=== PATIENT | male | born 2000 ===

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

== ENCOUNTER 2018-02-14 22:00 | Emergency (ER) | payer BC ==
[~2018-02-14] VITALS: Ht 172.7 cm; Wt 61.6 kg
== END 2018-02-15 00:03 | disposition left against medical advice (07) ==
LOC: ER 22:00
DX: Z53.21 Procedure and treatment not carried out due to patient leaving prior to being seen by health care provider (principal)

== ENCOUNTER 2018-04-30 03:41 | Emergency (ER) | payer BC, OTHER ==
[~2018-04-30] VITALS: Ht 172.7 cm; Wt 45.4 kg
== END 2018-04-30 04:10 | disposition home or self-care (01) ==
LOC: ER 03:41
DX: H61.22 Impacted cerumen, left ear (principal); F17.210 Nicotine dependence, cigarettes, uncomplicated
CPT/HCPCS: 69210; 99282

== ENCOUNTER 2019-10-11 17:22 | Emergency (ER) | payer BC, OTHER ==
[~2019-10-11] VITALS: Ht 177.8 cm; Wt 65.8 kg
[2019-10-11] MEDS ORDERED: PRED20 PO (18:51)
== END 2019-10-11 18:57 | disposition home or self-care (01) ==
LOC: ER 17:22
DX: J45.901 Unspecified asthma with (acute) exacerbation (principal); F17.210 Nicotine dependence, cigarettes, uncomplicated
CPT/HCPCS: 71046; 94640; 99283-25

== ENCOUNTER → 2019-12-22 | Outpatient (CLI) | payer BC, OTHER ==
[~2019-12-22] MED LIST changes: +PRED20 PO
== END | disposition home or self-care (01) ==
LOC: LAB EV 16:10 → LAB SHORT 16:10
DX: L03.012 Cellulitis of left finger (principal)
CPT/HCPCS: 87070; 87075; 87077; 87147; 87186; 87205

== ENCOUNTER 2025-01-08 10:29 | Inpatient (IN) | payer OTHER ==
[~2025-01-08] VITALS: Ht 175.3 cm; Wt 61.1 kg
[2025-01-08] MEDS ORDERED: Ketorolac Tromethamine 15mg Vial IV ONE (11:30)
[2025-01-08 12:01] LABS: BASOPHILS ABSOLUTE AUTO 0.04 K/mm3 (0.00-0.23); BASOPHILS PERCENT AUTO 0 % (0-2); EOSINOPHILS ABSOLUTE AUTO 0.17 K/mm3 (0.00-0.68); EOSINOPHILS PERCENT AUTO 2 % (0-6); Hematocrit 38.1 % (37.0-53.0); Hemoglobin 13.1 g/dL (13.5-17.5); IMMATURE GRAN ABSOLUTE AUTO 0.03 K/mm3 (0.00-0.10); IMMATURE GRAN PERCENT AUTO 0 % (0-1); LYMPHOCYTES ABSOLUTE AUTO 1.44 K/mm3 (0.84-5.20); LYMPHOCYTES PERCENT AUTO 14 % (21-46); MONOCYTES PERCENT AUTO 12 % (4-13); Mean Corpuscular HGB 29.3 pg (26.0-34.0); Mean Corpuscular HGB Conc 34.4 g/dL (31.5-36.5); Mean Corpuscular Volume 85 fL (80-100); Mean Platelet Volume 8.5 fL (9.1-12.4); NEUTROPHILS ABSOLUTE AUTO 7.12 K/mm3 (1.96-9.15); NEUTROPHILS PERCENT AUTO 71 % (41-73); Platelet Count 372 K/mm3 (150-400); RDW Coefficient Variation 12.6 % (11.7-14.2); RDW Standard Deviation 39.1 fL (35.1-46.3); Red Blood Cell Count 4.47 M/mm3 (4.30-5.90)
[2025-01-08] MEDS ORDERED: Clindamycin 900mg in D5W 50ML 50 ML IV ONE (12:05)
[2025-01-08 12:20] LABS: Albumin, Blood 3.7 g/dL (3.4-5.0); Albumin/Globulin Ratio 0.9 (0.8-1.8); Bun/Creatinine Ratio 19.4 (12.0-20.0); Calcium, Blood 9.4 mg/dL (8.5-10.1); Creatinine, Blood 0.88 mg/dL (0.60-1.20); Potassium, Blood 4.2 mmol/L (3.5-5.5); Total Protein, Blood 7.7 g/dL (6.4-8.2)
[2025-01-08] MEDS ORDERED: Vancomycin HCL 1,500 MG in NS 250 ML IV ONE (12:45)
[2025-01-08] MEDS ORDERED: Naloxone HCl 1MG / ML 2ML SYR IV ONE (14:25)
[2025-01-08] MEDS ORDERED: Ondansetron 4 MG TAB PO PRN (15:10)
[2025-01-08 17:48] VITALS: BP 120/79
[2025-01-08] MEDS ORDERED: NS 250 ML IV PRN (19:30)
[2025-01-08 20:07] VITALS: BP 118/78
[2025-01-08] MEDS ORDERED: Lactobacil 2-S.Thermo-Bifido 1 1 Cap PO SCH (21:00)
[2025-01-08] MEDS ORDERED: Docusate Sodium 100 MG Cap PO SCH (21:00)
[2025-01-08] MEDS ORDERED: Acetaminophen 325 MG TABLET PO PRN (21:45)
[2025-01-08] MEDS ORDERED: Ibuprofen 600 MG Tab PO PRN (21:50)
[2025-01-08] MEDS ORDERED: NS 1,000 ML IV SCH (21:50)
[2025-01-08] MEDS ORDERED: Clindamycin 900mg in D5W 50ML 50 ML IV SCH (22:00)
[2025-01-08] MEDS ORDERED: Vancomycin HCL 1,000 MG in NS 250 ML IV SCH (22:00)
--- NOTE | 2025-01-09 04:03 | NUR ---
SHIFT SUMMARY PATIENT HAD NO ACUTE CHANGES. ALERT ORIENTED AND INDEPENDENT IN ROOM. DENIES CHEST PAIN, SOB, AND N/V. VSS/AFEBRILE. PIV INTACT. IV ABXS INFUSED. WATCHED TV FIRST HALF OF SHIFT. COOPERATIVE WITH CARE. CALL LIGHT IN REACH. BED IN LOWEST POSITION. WILL CONTINUE TO MONITOR UNTIL DAY SHIFT NURSE ASSUMES CARE.
[2025-01-09 04:45] VITALS: BP 116/74
[2025-01-09 05:04] LABS: BASOPHILS ABSOLUTE AUTO 0.03 K/mm3 (0.00-0.23); BASOPHILS PERCENT AUTO 1 % (0-2); EOSINOPHILS ABSOLUTE AUTO 0.27 K/mm3 (0.00-0.68); EOSINOPHILS PERCENT AUTO 4 % (0-6); Hematocrit 33.6 % (37.0-53.0); Hemoglobin 11.6 g/dL (13.5-17.5); IMMATURE GRAN ABSOLUTE AUTO 0.02 K/mm3 (0.00-0.10); IMMATURE GRAN PERCENT AUTO 0 % (0-1); LYMPHOCYTES ABSOLUTE AUTO 1.49 K/mm3 (0.84-5.20); LYMPHOCYTES PERCENT AUTO 23 % (21-46); MONOCYTES ABSOLUTE AUTO 0.89 K/mm3 (0.16-1.47); MONOCYTES PERCENT AUTO 14 % (4-13); Mean Corpuscular HGB 29.8 pg (26.0-34.0); Mean Corpuscular HGB Conc 34.5 g/dL (31.5-36.5); Mean Corpuscular Volume 86 fL (80-100); NEUTROPHILS ABSOLUTE AUTO 3.72 K/mm3 (1.96-9.15); NEUTROPHILS PERCENT AUTO 58 % (41-73); Platelet Count 279 K/mm3 (150-400); RDW Coefficient Variation 12.8 % (11.7-14.2); RDW Standard Deviation 40.4 fL (35.1-46.3); Red Blood Cell Count 3.89 M/mm3 (4.30-5.90); White Blood Cell Count 6.42 K/mm3 (4.00-11.30)
[2025-01-09 06:05] LABS: Albumin, Blood 2.8 g/dL (3.4-5.0); Albumin/Globulin Ratio 0.9 (0.8-1.8); Bilirubin, Total 0.6 mg/dL (0.1-1.0); Calcium, Blood 8.5 mg/dL (8.5-10.1); Creatinine, Blood 0.84 mg/dL (0.60-1.20); Globulin, Blood 3.2 g/dL (2.2-4.0); Potassium, Blood 3.8 mmol/L (3.5-5.5)
[2025-01-09 07:43] VITALS: BP 112/63
[2025-01-09] MEDS ORDERED: Enoxaparin 40 MG/0.4 ML SYR SC SCH (09:00)
[2025-01-09 15:08] VITALS: BP 123/77
--- NOTE | 2025-01-09 18:08 | NUR ---
ALERT AND ORIENTED, PLEASANT TO CARE, SHOWERED, LEFT KNEE OPEN TO AIR, LEFT KNEE LESS RED, VANCO STOPPED PER DR ORTA, ICE PACK TO KNEE, MEDICATED WITH IBUPHROFEN X2, PATIENT REPORTED ADEQUATE RELIEF, CALL LIGHT WITH IN REACH, WILL RELAY TO PM RN
[2025-01-09 19:26] VITALS: BP 113/78
--- NOTE | 2025-01-10 04:07 | NUR ---
SHIFT SUMMARY PATIENT HAD NO ACUTE CHANGES. ALERT ORIENTED AND INDEPENDENT IN ROOM. REPORTS HIS LEFT LEG IS FEELING BETTER. DENIES CHEST PAIN, SOB, AND N/V. PIV INTACT. IV ABX INFUSED. SLEPT EARLY IN SHIFT. COOPERATIVE WITH CARE. CALL LIGHT IN REACH. BED IN LOWEST POSITION. WILL CONTINUE TO MONITOR UNTIL DAY SHIFT NURSE ASSUMES CARE.
[2025-01-10 05:28] VITALS: BP 112/78
[2025-01-10 07:14] VITALS: BP 114/75
[2025-01-10] MEDS ORDERED: Acetaminophen650 M1 PO (11:50)
[2025-01-10] MEDS ORDERED: IBUP400 PO (11:51)
[2025-01-10] MEDS ORDERED: CLIN150 PO (11:51)
[2025-01-10] MEDS ORDERED: VISBIOME 112.51 EACH PO (11:52)
--- NOTE | 2025-01-10 14:09 | NUR ---
DISCHARGED 1400, INSTRUCTIONS GIVEN TO PATIENT, PATIENT STATED UNDERSTANDING AND DENIED FURTHER QUESTIONS, PLEASANT TO CARE
== END 2025-01-10 13:52 | disposition home or self-care (01) | DRG 603 ==
LOC: ER 10:29 → MEDS 15:08
PROVIDERS: Physician Assistant; ADMIT Hospitalist
DX: L03.116 Cellulitis of left lower limb (principal); F15.10 Other stimulant abuse, uncomplicated; S80.212A Abrasion, left knee, initial encounter; F17.290 Nicotine dependence, other tobacco product, uncomplicated; Z86.14 Personal history of Methicillin resistant Staphylococcus aureus infection; V86.56XA Driver of dirt bike or motor/cross bike injured in nontraffic accident, initial encounter
CPT/HCPCS: 36415; 73590; 80053; 83605; 85025; 87040; 93005; 93010; 96365; 96375; 99285-25; A9270; J1650; J1885; J2310; J3370; J7030; J7050

== ENCOUNTER 2025-03-07 22:28 | Emergency (ER) | payer OTHER ==
[~2025-03-07] VITALS: Ht 175.3 cm; Wt 68.0 kg
[~2025-03-07 22:28] MED LIST changes: +Acetaminophen650 M1 PO; +CLIN150 PO; +IBUP400 PO; +VISBIOME 112.51 EACH PO; +Verapamil HCL 2.5 MG/ML 2ML Injection IV ONE
[2025-03-07 23:29] LABS: BASOPHILS ABSOLUTE AUTO 0.05 K/mm3 (0.00-0.23); BASOPHILS PERCENT AUTO 1 % (0-2); EOSINOPHILS ABSOLUTE AUTO 0.15 K/mm3 (0.00-0.68); EOSINOPHILS PERCENT AUTO 3 % (0-6); Hematocrit 37.4 % (37.0-53.0); Hemoglobin 12.9 g/dL (13.5-17.5); IMMATURE GRAN ABSOLUTE AUTO 0.01 K/mm3 (0.00-0.10); IMMATURE GRAN PERCENT AUTO 0 % (0-1); LYMPHOCYTES ABSOLUTE AUTO 1.53 K/mm3 (0.84-5.20); LYMPHOCYTES PERCENT AUTO 31 % (21-46); MONOCYTES ABSOLUTE AUTO 0.58 K/mm3 (0.16-1.47); MONOCYTES PERCENT AUTO 12 % (4-13); Mean Corpuscular HGB Conc 34.5 g/dL (31.5-36.5); Mean Corpuscular Volume 87 fL (80-100); NEUTROPHILS ABSOLUTE AUTO 2.63 K/mm3 (1.96-9.15); NEUTROPHILS PERCENT AUTO 53 % (41-73); NRBC ABSOLUTE 0.00 K/mm3 (0.00-0.02); NRBC Auto 0.0 /100 WBC (0.0-0.2); Platelet Count 272 K/mm3 (150-400); RDW Coefficient Variation 13.5 % (11.7-14.2); RDW Standard Deviation 43.0 fL (35.1-46.3)
[2025-03-07 23:50] LABS: Anion Gap 7.0 mmol/L (3-11); Blood Urea Nitrogen 9.0 mg/dL (8-24); CO2, Blood 31.0 mmol/L (21-32); Calcium, Blood 8.4 mg/dL (8.5-10.1); Chloride, Blood 104.0 mmol/L (98-108); Creatinine, Blood 0.97 mg/dL (0.60-1.20); Glucose, Blood 102.0 mg/dL (70-99); Potassium, Blood 4.1 mmol/L (3.5-5.5); Sodium, Blood 138.0 mmol/L (136-145)
[2025-03-08] MEDS ORDERED: BACTRIM DS TAB1 EAC1 PO (00:05)
[2025-03-08] MEDS ORDERED: Trimethoprim/Sulfamethoxazole DS Tab PO ONE (00:05)
[2025-03-08] MEDS ORDERED: Naloxone HCl 1MG / ML 2ML SYR ONE (00:15)
[2025-03-08] MEDS ORDERED: Naloxone HCl 1MG / ML 2ML SYR IV ONE (00:25)
[2025-03-08 01:45] VITALS: BP 112/72
[2025-03-08] MEDS ORDERED: RX Prepack 2 Sprays Naloxone HCL 4 MG/SPRAY UD ONE (01:50)
== END 2025-03-08 02:03 | disposition home or self-care (01) ==
LOC: ER 22:28
PROVIDERS: Student in an Organized Health Care Education/Training Program
DX: L03.211 Cellulitis of face (principal); L03.114 Cellulitis of left upper limb; L03.113 Cellulitis of right upper limb; L03.313 Cellulitis of chest wall; Z86.14 Personal history of Methicillin resistant Staphylococcus aureus infection
CPT/HCPCS: 80048; 85025; 93005; 93010; 96374; 99283; A9270; J2310